=== PATIENT | male | born 1960 | race Caucasian/White ===

== ENCOUNTER 2017-03-14 13:40 | Emergency (ER) | payer MEDICARE, OTHER ==
[2017-03-14] MEDS ORDERED: IOPAMIDOL 300 (61%) 100 ML VIAL IV ONE (13:41)
[2017-03-14] MEDS ORDERED: LACTATED RINGERS 1,000 ML ONE (14:19)
[2017-03-14 14:42] LABS: ABSOLUTE NEUTROPHIL COUNT 4.3 K/mm3 (1.8-7.7); BASO % 0.6 % (0.2-1.0); EOS # 0.1 (0.0-0.5); EOS % 1.6 % (0.9-2.9); HEMATOCRIT 45.9 % (32.0-52.0); HEMOGLOBIN 14.9 gm/l (14.0-18.0); IMM NEUT% 0.3 % (0-1); LYMPH # 1.8 (1.0-4.8); LYMPH % 25.7 % (15-45); MEAN CELL VOLUME 90.9 fl (80.0-94.0); MEAN CORPUSCULAR HEMOGLOBIN 29.5 pg (27.0-31.0); MEAN CORPUSCULAR HGB CONC 32.5 g/dl (33.0-37.0); MEAN PLATELET VOLUME 9.9 fl (7.4-10.4); MONO # 0.6 (0.0-0.8); MONO % 8.8 % (4-12); PLATELET COUNT 171 K/mm3 (130-400)
[2017-03-14 14:53] LABS: ALB/GLOB RATIO 1.3 (>1.0); CALCIUM 9.1 mg/dL (8.6-10.3)
[2017-03-14] MEDS ORDERED: MORPHINE SULFATE 2 MG/ML SYRINGE ONE ×2 (14:57→16:19)
[2017-03-14] MEDS ORDERED: MORPHINE SULFATE 4 MG/ML SYRINGE ONE ×2 (14:57→16:19)
[2017-03-14] MEDS ORDERED: ONDANSETRON 4 MG/2ML 2 ML VIAL ONE (14:58)
--- NOTE | 2017-03-14 15:00 | CT ---
CT ABDOMEN AND PELVIS WITH CONTRAST HISTORY: Right lower quadrant pain. TECHNIQUE: Following intravenous administration of 100cc of Isovue-300, contiguous axial images were acquired from the lung bases to the ischial tuberosities. Oral contrast was not administered. COMPARISON:None. FINDINGS: LUNG BASES: Minor atelectatic change. Note made of mild cardiomegaly. LIVER: 8 mm low-attenuation lesion of the right hepatic lobe. SPLEEN: No focal lesion. 1.3 cm splenic artery aneurysm is present. PANCREAS: No focal lesion. ADRENAL GLANDS: No mass effect. KIDNEYS: No focal lesion. No collecting system dilatation. GALLBLADDER: Present. BOWEL: Moderate fecal loading. Limited assessment of the distal colon due to decompression. No abnormal small bowel dilatation. Minor colonic diverticulosis without diverticulitis. Minor fecaloid content within the terminal ileum. Wall enhancement of multiple small bowel loops bowel. Minor fatty stranding along the ascending colon with an ovoid appearance, perhaps reflecting epiploic appendage on this. Mild colitic change is another possibility. APPENDIX: Not seen. PELVIC ORGANS: No gross mass effect. FREE FLUID: No gross free fluid identified. INGUINAL REGIONS: Bilateral fatty inguinal hernia formation. ABDOMINOPELVIC LYMPH NODES: No abnormally enlarged lymph nodes identified. ABDOMINAL AORTA: Minor atherosclerotic calcifications. OSSEOUS STRUCTURES: Thoracolumbar disc degeneration. IMPRESSION: 1. Inflammatory change of fat along the descending colon, considerations include epiploic appendicitis versus mild colitic change. No rim-enhancing abscess. Wall enhancement of small bowel suggests enteritis.. 2. The appendix is not seen. Fecal load standing into the terminal ileum suggests constipation. No high-grade obstruction identified. 3. 1.3 cm splenic artery aneurysm, recommend one-year follow-up. 4. Thoracolumbar disc degeneration. 5. Fatty inguinal hernia formation. 6. Probable subcentimeter cyst of the right hepatic lobe. Results were electronically transmitted to the electronic medical record at 03/14/2017 at 1457 hours.
[2017-03-14] MEDS ORDERED: METRONIDAZOLE 500 MG TABLET ONE (16:19)
[2017-03-14] MEDS ORDERED: CIPROFLOXACIN 500 MG TABLET ONE (16:19)
== END 2017-03-14 16:48 | disposition home or self-care (01) ==
LOC: ED 13:40
DX: K52.9 Noninfective gastroenteritis and colitis, unspecified (principal); F17.210 Nicotine dependence, cigarettes, uncomplicated; Z21 Asymptomatic human immunodeficiency virus [HIV] infection status